=== PATIENT | male | born 1995 | race Caucasian/White ===

== ENCOUNTER 2019-09-30 17:38 | Emergency (ER) | payer BC, SELFPAY ==
[2019-09-30 17:53] VITALS: BP 157/100; PULSE 93; RESP 19; TEMP 36.8; O2SAT 100
--- NOTE | 2019-09-30 18:06 | ED.ABDPAIN ---
HPI - Abdominal Pain General Chief Complaint: Skin/Abscess/Foreign Body <Polo Gamboa PA-C - Last Filed: 09/30/19 18:38> Stated Complaint: Food lodged in throat <BASSAM Hill Last Filed: 09/30/19 18:38> Time Seen by Provider: 09/30/19 17:44 <Polo Gamboa PA-C - Last Filed: 09/30/19 18:38> Source: patient <Polo Gamboa PA-C - Last Filed: 09/30/19 18:38> Mode of arrival: ambulatory <BASSAM Hill Last Filed: 09/30/19 18:38> Limitations: no limitations <BASSAM Hill Last Filed: 09/30/19 18:38> History of Present Illness HPI narrative: Patient is a 24-year-old male who presents with difficulty with swallowing that began after eating steak today patient notes he is unable to tolerate liquids patient notes some mild discomfort worse with swallowing patient denies similar occurrence in the past patient denies URI symptoms vomiting diarrhea has not taken anything for his symptoms denies similar occurrence in the past is resting comfortably in the room upon arrival <Polo Gamboa PA-C - Last Filed: 09/30/19 18:38> Related Data Allergies/Adverse Reactions: Allergies Allergy/AdvReac Type Severity Reaction Status Date / Time No Known Allergies Allergy Verified 09/30/19 18:07 <Polo Gamboa PA-C - Last Filed: 09/30/19 18:38> Review of Systems Review of Systems: All systems reviewed & are unremarkable except as noted in HPI and below <Polo Gamboa PA-C - Last Filed: 09/30/19 18:38> PMFSH Social History Social History: Social History (Updated 09/30/19 @ 18:07 by Polo Gamboa PA-C) Smoking status: Never smoker Gender identity (if verbalized by the patient): Male <BASSAM Hill Last Filed: 09/30/19 18:38> Exam Narrative: Exam Narrative: GENERAL: Well-appearing, well-nourished, and in no acute distress. HEAD: Normocephalic, atraumatic. EYES: PERRLA and EOMI. ENT: Nares clear, no rhinorrhea or epistaxis. Mucous membranes moist. Oropharynx without tonsillar hypertrophy exudate or other lesions. NECK: Supple. No adenopathy or masses. No stridor CHEST: Clear to auscultation. No respiratory distress. No wheezes rales or rhonchi HEART: Regular rate and rhythm. No murmur heard. EXTREMITIES: Normal range of motion. No edema. SKIN: Warm, dry, no rash. NEURO: No focal deficits. Alert and oriented x3. PSYCH: Normal mood and affect. <BASSAM Hill Last Filed: 09/30/19 18:38> Course Course Emergency Course: Patient in the room in no distress aware of case findings treatment plan and diagnosis agreeing to follow-up as directed upon returning home with GI <Polo Gamboa PA-C - Last Filed: 09/30/19 18:38> Vital Signs Vital signs: Vital Signs Temperature 36.8 C 09/30/19 17:53 Pulse Rate 93 09/30/19 17:53 Respiratory Rate 19 09/30/19 17:53 Blood Pressure 157/100 H 09/30/19 17:53 Pulse Oximetry 100 09/30/19 17:53 Temperature 36.8 C 09/30/19 17:53 Pulse Rate 93 09/30/19 17:53 Respiratory Rate 19 09/30/19 17:53 Blood Pressure 157/100 H 09/30/19 17:53 Pulse Oximetry 100 09/30/19 17:53 <Polo Gamboa PA-C - Last Filed: 09/30/19 18:38> Vital Signs Temperature 36.8 C 09/30/19 17:53 Pulse Rate 93 09/30/19 17:53 Respiratory Rate 19 09/30/19 17:53 Blood Pressure 157/100 H 09/30/19 17:53 Pulse Oximetry 100 09/30/19 17:53 Temperature 36.8 C 09/30/19 17:53 Pulse Rate 93 09/30/19 17:53 Respiratory Rate 19 09/30/19 17:53 Blood Pressure 157/100 H 09/30/19 17:53 Pulse Oximetry 100 09/30/19 17:53 <Dwayne Pickens MD - Last Filed: 12/07/19 04:35> MDM - Abdominal Pain MDM Narrative Medical decision making narrative: Patient passed the food bolus is feeling much better at this time resting comfortably in the room in no distress agreeing to follow-up with primary care for further evaluation as w
[2019-09-30] MEDS: NITROGLYCERIN SL 0.4 MG TABLET SUBLINGUAL (18:08)
[2019-09-30] MEDS: SODIUM CHLORIDE 0.9% IV 1,000 ML 999 ML IV CONT (18:08)
[2019-09-30] MEDS: HYOSCYAMINE SULFATE 0.125 MG TABLET PO (18:14)
[2019-09-30] MEDS: GLUCAGON FOR INJ 1 MG VIAL IM (18:18)
--- NOTE | 2019-09-30 18:18 | PC.NURSE ---
Per PRISCILA gómez Glucagon given IV instead of IM
--- NOTE | 2019-10-06 07:22 | PC.NURSE ---
LATE ENTRY This note is being entered to document information to the patient's record. The following information was omitted on 09/30/19, by Tanvi Skaggs RN. NS stopped at 1846 by this RN
== END 2019-09-30 18:58 | disposition home or self-care (01) ==
PROVIDERS: Emergency Provider Emergency Medicine
DX: T18.128A Food in esophagus causing other injury, initial encounter (principal)
CPT/HCPCS: 96360; 96361; 96372; 96374; 99283; 99284; A9270; J1610; J7030